=== PATIENT | male | born 1975 | race Caucasian/White ===

== ENCOUNTER 2020-03-09 12:53 | Emergency (ER) | payer OTHER, SELFPAY ==
--- NOTE | 2020-03-09 | ECG_ITS ---
Test Reason : SYNCOPEE Blood Pressure : / mmHG Vent. Rate : 058 BPM Atrial Rate : 058 BPM P-R Int : 182 ms QRS Dur : 090 ms QT Int : 406 ms P-R-T Axes : 046 007 040 degrees QTc Int : 398 ms Sinus bradycardia RSR' or QR pattern in V1 suggests right ventricular conduction delay Low voltage QRS Abnormal ECG When compared with ECG of 21-SEP-2017 08:58, Vent. rate has decreased BY 29 BPM Referred By: Generic ED Physician Electronically Signed By:HAZEL ORR MD
[2020-03-09 14:03] VITALS: BP 129/84; PULSE 63
--- NOTE | 2020-03-09 14:03 | XR_ITS ---
EXAMINATION: XR CHEST CLINICAL INFORMATION: Syncope COMPARISON: September 21, 2017 TECHNIQUE: 2 views of the chest were obtained. FINDINGS: No significant abnormality is noted involving the heart, lungs, mediastinum, bony thorax or soft tissues. There is some mild elevation of the left hemidiaphragm related to distention of bowel. XR/XR chest 2V IMPRESSION: No acute disease.
--- NOTE | 2020-03-09 14:03 | CT_ITS ---
EXAMINATION: CT HEAD WITHOUT CONTRAST CLINICAL INFORMATION: Syncope COMPARISON: None TECHNIQUE: Contiguous axial imaging was performed from the skull base to vertex without intravenous administration of contrast. This CT examination was performed using dose optimization techniques as appropriate, variously including the following: *Automated exposure control *Adjustment of mA and/or kV according to patient size (this includes techniques or standardized protocols for targeted exams where dose is matched to indication/reason for exam; i.e. extremities or head) *Use of iterative reconstruction technique DLP: 763 mGy-cm FINDINGS: There is no evidence of acute intracranial hemorrhage or territorial infarction. No abnormal mass effect or midline shift is seen. Hay to white matter differentiation is well preserved. No extra-axial fluid collections are identified. The ventricles are normal in size. There is no abnormal attenuation within the brain parenchyma. The osseous structures and soft tissues are normal. The mastoid air cells and visualized portions of the paranasal sinuses are well aerated. CT/CT head/brain wo con IMPRESSION: No acute intracranial pathology.
--- NOTE | 2020-03-09 14:05 | ED.SYNCOPE ---
HPI - Syncope General Chief Complaint: Syncope Stated Complaint: FAINTED Time Seen by Provider: 03/09/20 13:42 Source: patient Mode of arrival: ambulatory Limitations: no limitations History of Present Illness HPI narrative: 44-year-old male with no past medical history here with syncopal episode. Patient tells me this morning when he stood up he had an episode of feeling lightheaded like he might pass out. He sat down and the symptoms improved. He had a 2nd episode where he sat up felt lightheaded and then he tells me he woke up on the ground. He denies incontinence. It was unwitnessed. Thinks it may have been several seconds. Unsure if he hit his head when he fell. He tells me he has been drinking water but has not had anything to eat since yesterday morning. No vomiting or diarrhea or abdominal pain or chest pain or shortness of breath cough or headache. He has no associated symptoms with the lightheadedness. He has never had this happen before. MD complaint: loss of consciousness and felt faint Onset (ago): minute(s) -: second(s) Prodromal symptoms: lightheaded Witnessed: No Context: standing up Injuries sustained associated with event: none Current symptoms: none Treatments prior to arrival: none Related Data Allergies Allergy/AdvReac Type Severity Reaction Status Date / Time No Known Allergies Allergy Unverified 01/16/20 15:04 [No Known Allergies*] Review of Systems Review of Systems: Yes all other systems are reviewed and are negative Constitutional: Constitutional: Reports no additional constitutional complaints, Denies body ache(s), Denies chills, Denies fever(s), Denies headache(s) and Denies weakness Eyes: Eyes: Reports no additional eye complaints and Denies change in vision ENT: Reports system reviewed and no additional complaints, except as documented, Reports dizziness ( Lightheadedness), Denies headache(s), Denies nasal congestion, Denies nasal discharge and Denies neck pain Cardiovascular: Cardiovascular: Reports no additional cardiovascular complaints, Denies chest pain, Denies leg edema and Denies dyspnea Respiratory: Respiratory: Reports no additional respiratory complaints, Denies cough and Denies dyspnea Gastrointestinal: Gastrointestinal: Reports no additional gastrointestinal complaints, Denies abdominal pain, Denies diarrhea, Denies nausea and Denies vomiting Genitourinary: Genitourinary: Denies urinary incontinence Musculoskeletal: Musculoskeletal: Reports no additional musculoskeletal complaints, Denies back pain, Denies arthralgias, Denies joint swelling, Denies neck pain, Denies numbness and Denies tingling Integumentary/Breasts: Skin/Breast: Reports system reviewed and no additional complaints, except as docu and Denies rash Neurologic: Reports system reviewed and no additional complaints, except as documented, Denies Abnormal speech present, Reports dizziness ( Lightheadedness), Denies headache(s), Denies numbness, Denies tingling and Denies weakness [facility] Past Medical History Attestation statement: The following information was validated with the patient. Source: obtained from family and nursing notes reviewed Social History Social History Advance Directives: No Advance Directives Information Provided: No Physical Exam Vital Signs: Vital Signs: Last Vital Signs Temp 98.1 F 03/09/20 15:12 Pulse 64 03/09/20 16:38 Resp 16 03/09/20 15:12 BP 85/51 L 03/09/20 16:38 Pulse Ox 99 03/09/20 15:12 Body Mass Index 34.9 Const: General: cooperative, healthy appearing, comfortable and no acute distress Orientation/consciousness: patient oriented x3 Limitations: no limitations HENMT: Head: Yes normal to inspection Ears: hearing grossly normal bilaterally General nose exam: Normal external nose present Face and sinus: Yes normal facial exam Mouth: Normal oral and palatal mucosa present Throat: Yes posterior oropharynx normal Eyes: General: appearance normal, both eyes and all related structures Pupils: Equal, round and reactive pupils present Neck: Neck: Yes normal visual inspection Chest: Chest palpation & inspection: normal inspection of the chest Resp: Effort & Inspection: normal respiratory effort Auscultation: clear to auscultation bilaterally Cardio: Rate: regular rate Rhythm: regular rhythm Peripheral pulses: Peripheral pulses 2+ throughout GI: Inspection: Yes normal to inspection Palpation (GI): Soft to palpation and nontender Auscultation: normal bowel sounds Back/Spine/Pelvis: Thoracic/Lumbar Spine: thoracic and lumbar spine normal to inspection Skin: General skin exam: no rashes or lesions noted Neuro: General: patient oriented x3, no focal motor deficits and normal sensation to monofilament Cranial nerves: Yes CN's II-XII intact bilaterally, Yes Equal, round and reactive pupils present, Yes Bilaterally intact EOM present, Yes Nystagmus not present, Yes Normal facial strength present and Yes Midline tongue present Cognition (Neuro): normal cognition Speech: No Abnormal speech present Gait exam (Neuro): Normal gait present Motor exam (neuro): 5/5 motor strength present throughout Coordination: [id number] test normal, [id number] test normal and tandem gait normal Extrem: General: Yes normal to inspection Course Course Course Narrative: pt here with a lightheaded episode, then syncopal episode after standing. Both episodes occurred with standing. Normal neuro exam. Stable vital signs. Will need labs, EKG, UA, orthostatics, CXR and CT head. 1645- Labs unremarkable. Imaging negative. Orthostatics positive. Patient to be given 2 L normal saline will recheck. MDM - Syncope MDM Narrative Medical decision making narrative: Considered syncope, orthostatic hypotension, electrolyte abnormality, anemia, ICH, ACS, arthtymia Less likely electrolyte abnormality or anemia with normal labs. Less likely ICH with normal CT head. Less likely ACS wit unremarkable EKG and negative troponin. Less likely tachy arrhythmia with no EKG changes or tachyarrhythmias noted on registered nurse cardiac during ED stay. Likely orthostatic hypotension with significantly positive orthostatics. 1700-sign out to Yung BURROUGHS pending above. Medical Records Attestation: I reviewed the patient's medical records. Lab Data Attestation: I reviewed the patient's lab results. Result diagrams: 03/09/20 15:22 03/09/20 15:23 Labs: Lab Results 03/09/20 03/09/20 03/09/20 Range/Units 15:22 15:22 15:23 WBC 8.5 (4.8-10.8) X10*3/uL RBC 5.30 (4.60-5.80) X10*6/uL Hgb 16.0 (14.0-18.0) g/dl Hct 47.4 (42-52) % MCV 89.4 (80-98) fL MCH 30.2 (27.0-33.0) pg MCHC 33.8 (31.0-36.0) g/dl RDW 12.6 (11.0-16.0) % Plt Count 278 (160-400) X10*3/uL MPV 9.1 L (9.4-12.4) fL Immature Gran % (Auto) 0.2 (0.0-0.4) % Neut % (Auto) 69.7 (45-73) % Lymph % (Auto) 21.6 (20-40) % [place] % (Auto) 7.2 (2-11) % Eos % (Auto) 0.6 (0-4) % Baso % (Auto) 0.7 (0-2) % Lymph # (Auto) 1.8 (1.2-4.9) X10*3/uL [place] # (Auto) 0.6 (0.1-1.2) X10*3/uL Eos # (Auto) 0.1 (0.0-0.4) X10*3/uL Baso # (Auto) 0.1 (0.0-0.2) X10*3/uL Abs Immat Gran (auto) 0.02 (0.00-0.03) X10*3/uL Absolute Neuts (auto) 5.9 (2.0-8.3) X10*3/uL Absolute Nucleated RBC 0.000 (0.0-0.012) X10*3/uL Nucleated RBC % (auto) 0.0 (0.0-0.2) /100WBC PT 13.1 H (10.8-13.0) SEC INR 1.1 (0.9-1.1) Sodium 139 (135-145) mmol/L Potassium 4.1 (3.3-5.1) mmol/l Chloride 107 (96-108) mmol/L Carbon Dioxide 24 (22-29) mmol/L Anion Gap 12 (12-20) BUN 12 (9-16) mg/dL Creatinine 1.15 (0.5-1.4) mg/dL Estim Creat Clear Calc 112.4 Estimated GFR > 60 Random Glucose 109 (60-115) mg/dL Calcium 8.9 (8.4-10.2) mg/dL Magnesium 2.2 (1.6-2.6) mg/dL Total Bilirubin 0.7 (0.0-1.0) mg/dL Direct Bilirubin 0.3 (0.0-0.5) mg/dL AST 12 (5-37) U/L ALT 14 (0-40) U/L Alkaline Phosphatase 70 (39-117) U/L Troponin I High Sens (<3.5-35.0) ng/L Total Protein 7.3 (6.5-8.0) g/dL Albumin 4.3 (3.5-5.0) g/dL 03/09/20 Range/Units 15:23 WBC (4.8-10.8) X10*3/uL RBC (4.60-5.80) X10*6/uL Hgb (14.0-18.0) g/dl Hct (42-52) % MCV (80-98) fL MCH (27.0-33.0) pg MCHC (31.0-36.0) g/dl RDW (11.0-16.0) % Plt Count (160-400) X10*3/uL MPV (9.4-12.4) fL Immature Gran % (Auto) (0.0-0.4) % Neut % (Auto) (45-73) % Lymph % (Auto) (20-40) % [place] % (Auto) (2-11) % Eos % (Auto) (0-4) % Baso % (Auto) (0-2) % Lymph # (Auto) (1.2-4.9) X10*3/uL [place] # (Auto) (0.1-1.2) X10*3/uL Eos # (Auto) (0.0-0.4) X10*3/uL Baso # (Auto) (0.0-0.2) X10*3/uL Abs Immat Gran (auto) (0.00-0.03) X10*3/uL Absolute Neuts (auto) (2.0-8.3) X10*3/uL Absolute Nucleated RBC (0.0-0.012) X10*3/uL Nucleated RBC % (auto) (0.0-0.2) /100WBC PT (10.8-13.0) SEC INR (0.9-1.1) Sodium (135-145) mmol/L Potassium (3.3-5.1) mmol/l Chloride (96-108) mmol/L Carbon Dioxide (22-29) mmol/L Anion Gap (12-20) BUN (9-16) mg/dL Creatinine (0.5-1.4) mg/dL Estim Creat Clear Calc Estimated GFR Random Glucose (60-115) mg/dL Calcium (8.4-10.2) mg/dL Magnesium (1.6-2.6) mg/dL Total Bilirubin (0.0-1.0) mg/dL Direct Bilirubin (0.0-0.5) mg/dL AST (5-37) U/L ALT (0-40) U/L Alkaline Phosphatase (39-117) U/L Troponin I High Sens < 3.5 (<3.5-35.0) ng/L Total Protein (6.5-8.0) g/dL Albumin (3.5-5.0) g/dL Imaging Data Chest x-ray: Attestation: I personally reviewed and interpreted this imaging study as follows: Radiologist's impression: EXAMINATION: XR CHEST CLINICAL INFORMATION: Syncope COMPARISON: September 21, 2017 TECHNIQUE: 2 views of the chest were obtained. FINDINGS: No significant abnormality is noted involving the heart, lungs, mediastinum, bony thorax or soft tissues. There is some mild elevation of the left hemidiaphragm related to distention of bowel. XR/XR chest 2V IMPRESSION: No acute disease. CT scan - head: Attestation: I personally reviewed and interpreted this imaging study as follows: Radiologist's impression: EXAMINATION: CT HEAD WITHOUT CONTRAST CLINICAL INFORMATION: Syncope COMPARISON: None TECHNIQUE: Contiguous axial imaging was performed from the skull base to vertex without intravenous administration of contrast. This CT examination was performed using dose optimization techniques as appropriate, variously including the following: *Automated exposure control *Adjustment of mA and/or kV according to patient size (this includes techniques or standardized protocols for targeted exams where dose is matched to indication/reason for exam; i.e. extremities or head) *Use of iterative reconstruction technique DLP: 763 mGy-cm FINDINGS: There is no evidence of acute intracranial hemorrhage or territorial infarction. No abnormal mass effect or midline shift is seen. Hay to white matter differentiation is well preserved. No extra-axial fluid collections are identified. The ventricles are normal in size. There is no abnormal attenuation within the brain parenchyma. The osseous structures and soft tissues are normal. The mastoid air cells and visualized portions of the paranasal sinuses are well aerated. CT/CT head/brain wo con IMPRESSION: No acute intracranial pathology. ECG Data Attestation: I personally reviewed and interpreted this ECG as follows: ECG interpretation date: 03/09/20 ECG interpretation time: 14:56 Interpretation: Sinus bradycardia with a rate of 58, normal [place], normal QRS, normal QT. Normal ST segments Discharge Plan Discharge Clinical Impression: Syncope due to orthostatic hypotension Patient Disposition: Home, Self-Care Instructions: Syncope (ED), Hypotension (ED) Additional Instructions: change positions slowly. Eat frequent small meals drink plenty of fluids Referrals: Randy Howard MD [Primary Care Provider] - 2 days Stand Alone Forms: Work/School Release
[2020-03-09 15:12] VITALS: BP 120/82; PULSE 62; RESP 16; TEMP 36.7; O2SAT 99; BMI 34.9
[2020-03-09 15:29] LABS: Basophils Absolute Auto 0.1 X10*3/uL (0.0-0.2); Basophils Percent Auto 0.7 % (0-2); Eosinophils Absolute Auto 0.1 X10*3/uL (0.0-0.4); Eosinophils Percent Auto 0.6 % (0-4); Hematocrit 47.4 % (42-52); Imm Gran Abs Auto 0.02 X10*3/uL (0.00-0.03); Imm Gran Pct Auto 0.2 % (0.0-0.4); Lymphocytes Absolute Auto 1.8 X10*3/uL (1.2-4.9); Lymphocytes Percent Auto 21.6 % (20-40); MANUAL DIFF FLAG NO; Mean Corpuscular HGB Conc 33.8 g/dl (31.0-36.0); Mean Corpuscular Hemoglobin 30.2 pg (27.0-33.0); Mean Corpuscular Volume 89.4 fL (80-98); Mean Platelet Volume 9.1 fL (9.4-12.4); Monocytes Absolute Auto 0.6 X10*3/uL (0.1-1.2); Monocytes Percent Auto 7.2 % (2-11); Neutrophils Absolute Auto 5.9 X10*3/uL (2.0-8.3); Neutrophils Percent Auto 69.7 % (45-73); Platelet Count 278 X10*3/uL (160-400); Red Cell Distribution Width 12.6 % (11.0-16.0); White Blood Count 8.5 X10*3/uL (4.8-10.8)
[2020-03-09 15:36] LABS: INTERNATIONAL NORM RATIO 1.1 (0.9-1.1); Prothrombin Time 13.1 SEC (10.8-13.0)
[2020-03-09 15:52] LABS: Alanine Aminotransferase 14 U/L (0-40); Albumin Level 4.3 g/dL (3.5-5.0); Alkaline Phosphatase 70 U/L (39-117); Anion Gap 12 (12-20); Aspartate Amino Transferase 12 U/L (5-37); Bilirubin Direct 0.3 mg/dL (0.0-0.5); Bilirubin Total 0.7 mg/dL (0.0-1.0); Blood Urea Nitrogen 12 mg/dL (9-16); Calcium 8.9 mg/dL (8.4-10.2); Carbon Dioxide 24 mmol/L (22-29); Chloride 107 mmol/L (96-108); Creatinine Clr Calc Pharmacy 112.4; Estimated Glomerular Filt Rate > 60; Glucose Random 109 mg/dL (60-115); Magnesium 2.2 mg/dL (1.6-2.6); Potassium 4.1 mmol/l (3.3-5.1); Sodium 139 mmol/L (135-145); Total Protein 7.3 g/dL (6.5-8.0)
[2020-03-09 15:55] LABS: Troponin-I High Sensitivity < 3.5 ng/L (<3.5-35.0)
[2020-03-09 16:35] VITALS: BP 91/71; PULSE 77
[2020-03-09 16:38] VITALS: BP 85/51; PULSE 64
[2020-03-09] MEDS: 0.9 % Sodium Chloride 1,000 ML 999 ML IV ×2 (16:54)
[2020-03-09 18:40] VITALS: BP 157/97; PULSE 82
--- NOTE | 2020-03-09 18:40 | PC.NURSE ---
pt still appears to be orthostatic. provider at bedside to discusss plan of care w pt. pt deciding to leave [facility]a. provider aware, working on paperwork.
[2020-03-09 18:41] VITALS: BP 103/66; BP 122/67; PULSE 78; PULSE 80
== END 2020-03-09 19:13 | disposition left against medical advice (07) ==
PROVIDERS: Nurse Practitioner Family; Emergency Provider Emergency Medicine; PCP Internal Medicine
DX: I95.1 Orthostatic hypotension (principal); Z79.899 Other long term (current) drug therapy
CPT/HCPCS: 36415; 70450; 71046; 80048; 80076; 83735; 84484; 85025; 85610; 93005; 96360; 99283; 99284

== ENCOUNTER → 2020-07-07 09:57 | Outpatient (BNVA) | payer OTHER, SELFPAY | PROVIDERS: PCP Internal Medicine; Visit Provider Surgery Vascular Surgery | DX: I83.11 Varicose veins of right lower extremity with inflammation (principal); L03.116 Cellulitis of left lower limb; L03.115 Cellulitis of right lower limb | CPT/HCPCS: 99212 ==

== ENCOUNTER 2020-07-14 12:53 | Outpatient (REF) | payer OTHER, SELFPAY ==
--- NOTE | ~2020-07-14 | US_ITS ---
EXAMINATION: RIGHT and LEFT LOWER EXTREMITY VENOUS ULTRASOUND (Reflux Exam) CLINICAL INDICATION: leg pain and varicose veins. COMPARISON: Previous exam June 2018 TECHNIQUE: Color flow triplex imaging and compression Doppler was performed to evaluate both the deep and the superficial systems bilaterally. To evaluate the superficial system, the examination was performed in the upright position. Color-flow Doppler ultrasound and compression ultrasound were utilized. In addition, maneuvers were utilized to demonstrate reflux. FINDINGS: 1. DEEP VENOUS ULTRASOUND OF THE RIGHT LOWER EXTREMITY: Respiratory variation, normal compression and augmented flow are noted in the right common femoral vein as well as the right popliteal vein and there is no evidence of deep venous thrombosis at these locations. There is no evidence of reflux in the deep system in either the common femoral vein or the popliteal vein. There is no evidence of a Kim's cyst. 2. SUPERFICIAL ULTRASOUND WITH DOPPLER OF RIGHT LOWER EXTREMITY: The right great saphenous vein at the saphenofemoral junction measures 1 mm, at the mid thigh 6 mm, [id number] 5 mm, [id number] 5 mm, at mid calf 5 mm and at the ankle measures 3 mm. There is no reflux demonstrated in the right great saphenous vein. The right small saphenous vein measures 3-4 mm and shows no reflux. There are perforators in the mid calf and ankle to measure 2 and 3 mm and do not demonstrate reflux. There are varicosities at the knee, below the knee, the mid calf and ankle, maximum measuring 6 mm below the knee. These do not demonstrate reflux. 3. DEEP VENOUS ULTRASOUND OF THE LEFT LOWER EXTREMITY: Respiratory variation, normal compression and augmented flow are noted in the left common femoral vein as well as the left popliteal vein and there is no evidence of deep venous thrombosis at these locations. There is deep venous reflux in the mid femoral vein measuring 1.2 seconds in the popliteal vein measuring 1.7 seconds.. There is no evidence of a Kim's cyst. 4. SUPERFICIAL ULTRASOUND WITH DOPPLER OF LEFT LOWER EXTREMITY: Left great saphenous vein at the saphenofemoral junction measures 1.5 mm and 0.6 cm in the proximal thigh. The left greater saphenous vein in the mid thigh, [id number] and at the knee is occluded. The greater saphenous vein measures 4 mm [id number] , at mid calf 4 mm and at the ankle 3 mm. There is 1.9 seconds reflux at the saphenofemoral junction and 1.8 seconds reflux below the knee. There is an accessory lateral greater saphenous vein that measures 7 mm and does not demonstrate reflux. The left small saphenous vein measures 3-4 mm and shows no reflux. There are varicosities in the upper thigh, below the knee, at the mid calf and ankle, maximum measuring 5 mm below the knee. No prior varicosity reflux is seen. US/US venous duplex LE BI IMPRESSION: 1. No evidence of thrombus in the common femoral veins or popliteal veins bilaterally. Reflux in the left mid femoral and popliteal veins. No right deep venous reflux seen. 2. The right greater saphenous vein is patent throughout its length and demonstrates no reflux. The left greater saphenous vein is visualized at the saphenofemoral junction and in the proximal thigh. This is dilated at the saphenofemoral junction measuring 1.5 cm and demonstrates 1.9 seconds reflux. The left greater saphenous vein is occluded from the mid thigh to the knee. The left greater saphenous vein is visualized below the knee to the ankle and demonstrates 1.8 seconds reflux below the knee.
== END 2020-07-14 12:54 | disposition home or self-care (01) ==
LOC: HO.US 12:53
PROVIDERS: Visit Provider Nurse Practitioner Family
DX: I83.813 Varicose veins of bilateral lower extremities with pain (principal); Z98.890 Other specified postprocedural states
CPT/HCPCS: 93970

== ENCOUNTER → 2020-07-23 15:40 | Outpatient (BNVA) | payer OTHER, SELFPAY | PROVIDERS: PCP Internal Medicine; Visit Provider Surgery Vascular Surgery | DX: I83.11 Varicose veins of right lower extremity with inflammation (principal) | CPT/HCPCS: 99212 ==

== ENCOUNTER 2023-02-07 10:36 | Outpatient (AMB) | payer SELFPAY ==
--- NOTE | 2023-02-07 10:36 | MHC.PC.OV ---
Vital Signs 02/07/23 10:39 Height 6 ft Weight 218 lb 8 oz BMI 29.6 BP 128/82 Blood Pressure Location Lt brachial Position Sitting Pulse 79 Pulse Source Pulse Oximeter Pulse Oximetry (%) 97 Oxygen Delivery Method Room Air Intake Visit Reasons: Physical exam Intake Note: Patient is here today for a physical. Need forms filled out. Dot Etcher Required: No Hand Mold Maker: Not Required per policy Accompanied by: Self / Same As Patient Allergies No Known Allergies [No Known Allergies*] Allergy (Verified 02/07/23 10:38) Tobacco use date assessed: 02/07/23 Dental Screening Dental Screen Date: 02/07/23 Did you have a dental visit in the last 12 months?: No Did you have a dental problem in the last 6 months where you did not have access to dental care?: No Was dental information given to patient?: No HPI HPI Comments History of Present Illness Details 47-year-old male past medical history significant for PVD, lumbar degenerative disc disease and iron deficiency anemia, history of opiate abuse. Patient last seen in 2020 . Patient presents today for physical exam. Patient requesting [facility] paperwork be completed for continuous medical leave as patient Section 35 for detox for history of snorting heroin. Patient reports has been on a work since 12/11/2022 states he initially went to the [facility] for detox however they discharged him for insurance reasons, I have no proof of this admission. Last use day prior to admission. Patient was admitted 01/13/23- 02/03/23 [facility] in [facility] for opiate abuse, patient brought paperwork with him copies made in to be scanned to chart. Patient currently following with Methadone clinic [facility] on methadone liquid on 40 mg daily. A [place] paperwork completed office today for continous levae from 01/13/23-02/03/23 patient reports able to complete all job functions. Completed paperwork placed in scan bucket to be scanned to patient's chart. Denies any acute concerns. Denies chest pain, palpitations, shortness of breath syncope. Eye exam: 2 years ago Colonoscopy: never had, declined at this time. Immunizations:TDAP 2018, declined Flu shot. [facility] Medical History Tobacco abuse Peripheral vascular disease Iron deficiency anemia Venous stasis dermatitis of both lower extremities Obesity (BMI 30-39.9) Lumbar degenerative disc disease Bilateral lower leg cellulitis Surgical History Back pain with history of spinal surgery History of nasal surgery H/O wrist surgery Family History Father No problems noted. Mother No problems noted. 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 1. Little interest or pleasure in doing things: not at all 2. Feeling down, depressed, or hopeless: not at all 3. Trouble falling or staying asleep, or sleeping too much: not at all 4. Feeling tired or having little energy: not at all 5. Poor appetite or overeating: not at all 6. Feeling bad about yourself - or that you are a failure or have let yourself or your family down: not at all 7. Trouble concentrating on things, such as reading the newspaper or watching television: not at all 8. Moving or speaking so slowly that other people could have noticed. Or the opposite - being so fidgety or restless that you have been moving around a lot more than usual: not at all 9. Thoughts that you would be better off or of hurting yourself in some way: not at all Total score: 0 Depression Screening Interpretation: Negative Depression Screening Done: Yes 44364 - PHQ-9 Billing: Yes Source: Developed by Drs. Fredy Merino, Lindsey B.W. Woody Gonsalez and colleagues, with an educational pat from [employer]. Thrive Questionnaire Date Thrive assessed: 02/07/23 I am a: Patient What is your living situation today?: I have a steady place to live Within the past 12 months, did the food you bought not last and you didn't have the money to get more?: Never true Within the past 12 months, did you worry whether your food would run out before you got money to buy more?: Never true Do you have trouble paying for medicines?: No Do you have trouble getting transportation to medical appointments?: No Do you have trouble paying your heating and electricity bill?: No Do you have trouble taking care of your child, family member or friend?: No Do you have trouble with day-to-day activities such as bathing, preparing meals, shopping, managing finances, etc.?: No Are you currently unemployed and looking for a job?: No Are you interested in more education?: No Currently or been in a relationship where the following occur: no concerns reported AUDIT C Alcohol Use Questionnaire (AUDIT-C) 1. How often do you have a drink containing alcohol?: Monthly or less Total Score: 1 VANIA-7 AMB Questionnaire VANIA-7 Date VANIA - 7 assessed: 02/07/23 Feeling nervous, anxious, or on edge: 0 = Not at all Not being able to stop or control worryin = Not at all Worrying too much about different things: 0 = Not at all Trouble relaxin = Not at all Being so restless that it is hard to sit still: 0 = Not at all Becoming easily annoyed or irritable: 0 = Not at all Feeling afraid as if something awful might happen: 0 = Not at all Total VANIA-7 score (0-4 normal; 5-9 mild; 10-14 moderate; 15-21 severe): 0 Source: Developed by Drs. Fredy Merino, Woody Uribe and colleagues, with an educational pat from [employer]. VANIA-7 Assessment Billing VANIA-7 Assessment Tool: VANIA-7 Assessment 52059 Review of Systems Const Denies chills, Denies fatigue, Denies fever(s) and Denies poor appetite Eyes Denies no additional complaints ENT Reports Normal hearing present Card Denies chest pain, Denies syncope, Denies rapid heart rate and Denies dyspnea Resp Denies cough and Denies dyspnea GI Denies change in stool character, Denies constipation, Denies diarrhea, Denies nausea and Denies vomiting Denies dysuria, Denies urinary frequency and Denies urinary urgency Neuro Reports Normal hearing present, Denies confusion and Denies syncope Psych Denies confusion Endo Denies fatigue Physical exam (Primary Care) Vital Signs: Last Vital Signs Pulse 79 02/07/23 10:39 BP 128/82 02/07/23 10:39 Pulse Ox 97 02/07/23 10:39 Oxygen Delivery Method Room Air 02/07/23 10:39 BMI result Body Mass Index 29.6 Tobacco/Smoking Status: Tobacco use Status Tobacco use date assessed 02/07/23 02/07/23 10:39 Patient Tobacco Use Status Current everyday Tobacco 02/07/23 10:43 Tobacco use type Cigarette 02/07/23 10:43 e-Cigarette/Vaping Use Never Used 02/07/23 10:43 PHQ-9: PHQ-9 Score PHQ-9: Total score 0 02/07/23 10:48 Depression Screening Interpretation: Negative Thrive Assessment: Date of Thrive Assessment Date Thrive assessed 02/07/23 02/07/23 10:39 Currently or been in a relationship where the following occur: no concerns reported Const General: No confusion Orientation/consciousness: No confusion HENMT Head: Yes normocephalic and Yes atraumatic Ears: external ears normal and TM's normal bilaterally General nose exam: Normal external nose present and Normal nasal mucous membranes and turbinates present Face and sinus: Yes normal facial exam and Yes sinuses nontender Mouth: moist mucous membranes Throat: Yes tonsils normal Eyes Conjunctivae: conjunctivae normal Sclerae: sclerae normal Pupils: Equal, round and reactive pupils present and Pupils normal by confrontation EOM: EOMs intact bilaterally Direct Ophthalmoscopy: normal light reflex Neck Neck: Yes no lymphadenopathy and Yes supple Thyroid: Thyroid normal Chest Chest palpation & inspection: normal inspection of the chest Resp Effort & Inspection: normal respiratory effort Auscultation: clear to auscultation bilaterally, no crackles, no rhonchi and no wheezes Cardio Rate: regular rate Rhythm: regular rhythm Peripheral pulses: radial pulses present and dorsalis pedis present GI Inspection: Yes normal to inspection Palpation (GI): Soft to palpation, nontender and No hepatosplenomegaly present Auscultation: normoactive bowel sounds Skin General skin exam: no rashes or lesions noted Neuro General: No confusion Cranial nerves: Yes Equal, round and reactive pupils present and Yes Normal hearing present Cognition (Neuro): normal cognition Gait exam (Neuro): Normal gait present Motor exam (neuro): 5/5 motor strength present throughout Deep tendon reflexes (DTR's): Right brachioradialis reflex intensity grade: 2+, Left brachioradialis reflex intensity grade: 2+, Right patellar reflex intensity grade: 2+ and Left patellar reflex intensity grade: 2+ Extrem General: No edema Assessment and Plan Assessment & Plan (1) Physical exam, annual: Code(s): Z00.00 - Encounter for general adult medical examination without abnormal findings Plan Follow-up in 1 year sooner needed. Orders: Orders Comprehensive Otto. Panel Fast Today Z13.1 - Encounter for screening for diabetes mellitus Complete Blood Count no Diff Today Z13.0 - Encounter for screening for diseases of the blood and blood-forming organs and certain disorders involving the immune mechanism Lipid Panel Today Z13.220 - Encounter for screening for lipoid disorders TSH reflex Free T4 Today Z13.29 - Encounter for screening for other suspected endocrine disorder Coding Level of Care Code Est Pt Prev Care 40-64y(13914) Diagnoses Physical exam, annual Z00.00 Additional Codes VANIA-7 Assessment Billing - VANIA-7 Assessment Tool: VANIA-7 Assessment 29814 ([id number])
[2023-02-07 10:39] VITALS: BP 128/82; PULSE 79; O2SAT 97; BMI 29.6
== END 2023-02-07 11:16 | disposition home or self-care (01) ==
PROVIDERS: PCP Internal Medicine; Visit Provider Nurse Practitioner Family
DX: Z00.00 Encounter for general adult medical examination without abnormal findings (principal)
CPT/HCPCS: 99396

== ENCOUNTER 2023-08-22 12:21 | Outpatient (AMB) | payer BC, SELFPAY ==
[2023-08-22 12:30] VITALS: BP 152/98; PULSE 85; O2SAT 97; BMI 36.2
--- NOTE | 2023-08-22 12:30 | MHC.PC.OV ---
Vital Signs 08/22/23 12:30 Height 6 ft Weight 267 lb BMI 36.2 BP 152/98 H Blood Pressure Location Lt brachial Position Sitting Pulse 85 Pulse Source Pulse Oximeter Pulse Oximetry (%) 97 Oxygen Delivery Method Room Air Intake Visit Reasons: Form Intake Note: Patient is looking for a letter to return to work. Allergies No Known Allergies [No Known Allergies*] Allergy (Verified 08/22/23 12:31) Tobacco use date assessed: 08/22/23 Dental Screening Dental Screen Date: 08/22/23 Did you have a dental visit in the last 12 months?: No Did you have a dental problem in the last 6 months where you did not have access to dental care?: No Was dental information given to patient?: No HPI Form HPI Details 47-year-old obese male smoker with peripheral vascular disease, polysubstance abuse coming in for follow-up. Last seen in January 2023. Patient was in [facility] in [place]- march to last week 07/2023. PAtient is presently on Methadone. getting from [facility]. presently doing good [facility] Medical History Tobacco abuse Peripheral vascular disease Iron deficiency anemia Venous stasis dermatitis of both lower extremities Obesity (BMI 30-39.9) Lumbar degenerative disc disease Bilateral lower leg cellulitis Surgical History Back pain with history of spinal surgery History of nasal surgery H/O wrist surgery Family History Father No problems noted. Mother No problems noted. 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 1. Little interest or pleasure in doing things: not at all 2. Feeling down, depressed, or hopeless: not at all 3. Trouble falling or staying asleep, or sleeping too much: not at all 4. Feeling tired or having little energy: not at all 5. Poor appetite or overeating: not at all 6. Feeling bad about yourself - or that you are a failure or have let yourself or your family down: not at all 7. Trouble concentrating on things, such as reading the newspaper or watching television: not at all 8. Moving or speaking so slowly that other people could have noticed. Or the opposite - being so fidgety or restless that you have been moving around a lot more than usual: not at all 9. Thoughts that you would be better off or of hurting yourself in some way: not at all Total score: 0 Depression Screening Interpretation: Negative Depression Screening Done: Yes 32373 - PHQ-9 Billing: Yes Source: Developed by Drs. Fredy Merino, Lindsey Gonsalez, Woody Hernandes and colleagues, with an educational pat from [employer]. Thrive Questionnaire Date Thrive assessed: 08/22/23 I am a: Patient What is your living situation today?: I have a steady place to live Within the past 12 months, did the food you bought not last and you didn't have the money to get more?: Never true Within the past 12 months, did you worry whether your food would run out before you got money to buy more?: Never true Do you have trouble paying for medicines?: No Do you have trouble getting transportation to medical appointments?: No Do you have trouble paying your heating and electricity bill?: No Do you have trouble taking care of your child, family member or friend?: No Do you have trouble with day-to-day activities such as bathing, preparing meals, shopping, managing finances, etc.?: No Are you currently unemployed and looking for a job?: No Are you interested in more education?: No Currently or been in a relationship where the following occur: no concerns reported THRIVE Score: 0 AUDIT C Alcohol Use Questionnaire (AUDIT-C) 1. How often do you have a drink containing alcohol?: Never 3. How often do you have six or more drinks on one occasion?: Never Total Score: 0 VANIA-7 AMB Questionnaire VANIA-7 Date VANIA - 7 assessed: 08/22/23 Feeling nervous, anxious, or on edge: 0 = Not at all Not being able to stop or control worryin = Not at all Worrying too much about different things: 0 = Not at all Trouble relaxin = Not at all Being so restless that it is hard to sit still: 0 = Not at all Becoming easily annoyed or irritable: 0 = Not at all Feeling afraid as if something awful might happen: 0 = Not at all Total VANIA-7 score (0-4 normal; 5-9 mild; 10-14 moderate; 15-21 severe): 0 Source: Developed by Drs. Fredy Merino, Lindsey Gonsalez, Woody Hernandes and colleagues, with an educational pat from [employer]. VANIA-7 Assessment Billing VANIA-7 Assessment Tool: VANIA-7 Assessment 79145 Physical exam (Primary Care) Vital Signs: Last Vital Signs Pulse 85 08/22/23 12:30 BP 152/98 H 08/22/23 12:30 Pulse Ox 97 08/22/23 12:30 Oxygen Delivery Method Room Air 08/22/23 12:30 BMI result Body Mass Index 36.2 Tobacco/Smoking Status: Tobacco use Status Tobacco use date assessed 08/22/23 08/22/23 12:36 Patient Tobacco Use Status Current everyday Tobacco 08/22/23 12:36 Tobacco use type Cigarette 08/22/23 12:36 e-Cigarette/Vaping Use Never Used 08/22/23 12:36 PHQ-9: PHQ-9 Score PHQ-9: Total score 0 08/22/23 12:36 Depression Screening Interpretation: Negative Thrive Assessment: Date of Thrive Assessment Date Thrive assessed 08/22/23 08/22/23 12:36 Currently or been in a relationship where the following occur: no concerns reported Const General: alert; No acute distress Eyes Conjunctivae: conjunctivae normal Resp Auscultation: clear to auscultation bilaterally Cardio Rate: regular rate Rhythm: regular rhythm GI Inspection: Yes normal to inspection Extrem General: Yes normal to inspection and No edema Assessment and Plan Assessment & Plan (1) Obesity (BMI 30-39.9): Code(s): E66.9 - Obesity, unspecified Plan: Diet and exercise (2) Tobacco abuse: Code(s): Z72.0 - Tobacco use Plan: Patient is advised to strongly stop smoking! (3) Peripheral vascular disease: Code(s): I73.9 - Peripheral vascular disease, unspecified Plan: When sitting down elevate the legs, exercise, and support stockings (4) Polysubstance abuse: Code(s): F19.10 - Other psychoactive substance abuse, uncomplicated Plan: Continue to follow-up with methadone clinic Coding Level of Care Code Est Pt Level 4 (38320) Diagnoses Obesity (BMI 30-39.9) E66.9 Tobacco abuse Z72.0 Peripheral vascular disease I73.9 Polysubstance abuse F19.10 Additional Codes VANIA-7 Assessment Billing - VANIA-7 Assessment Tool: VANIA-7 Assessment 94659 ([id number])
== END 2023-08-22 12:52 | disposition home or self-care (01) ==
LOC: HO.HMGH 12:21
PROVIDERS: PCP Internal Medicine; Visit Provider Internal Medicine
DX: I73.9 Peripheral vascular disease, unspecified (principal); F19.10 Other psychoactive substance abuse, uncomplicated; E66.9 Obesity, unspecified; Z68.36 Body mass index [BMI] 36.0-36.9, adult; Z72.0 Tobacco use
CPT/HCPCS: 99214

== ENCOUNTER 2023-09-09 09:27 | Outpatient (AMB) | payer BC, SELFPAY ==
[2023-09-09 10:04] VITALS: BP 124/80; PULSE 80; TEMP 37.3; O2SAT 92; BMI 34.7
--- NOTE | 2023-09-09 10:04 | AM.OFFWIN_ITS ---
Intake Vital Signs 09/09/23 10:04 Height 6 ft Weight 256 lb BMI 34.7 BP 124/80 Blood Pressure Location Lt brachial Position Sitting Pulse 80 Pulse Source Pulse Oximeter Temp 99.1 F Temp Source Oral Pulse Oximetry (%) 92 Oxygen Delivery Method Room Air Intake Visit Reasons: EST/sinus pressure(lobby masked) Intake Note: Pt is here today c/o sinus pressure and coughing x4days Patient Tobacco Use Status: Current everyday Tobacco user Allergies No Known Allergies [No Known Allergies*] Allergy (Verified 09/09/23 10:46) Medication List - Last Reconciled 09/09/23 by BELKYS Khanna-WILBERT methadone 15 mg PO DAILY HPI HPI Comments History of Present Illness Details Here today with complaints of sinus pressure and cough since Monday. Has used [id number] medications without relief. Current smoker. Awake alert mildly ill-appearing but no acute distress Sclera and conjunctiva clear bilat TM intact and erythematous bilat MMM, pharynx positive postnasal drip RRR LS inspiratory expiratory wheezes throughout, hacking cough noted during exam without respiratory distress PFSH Medical History Tobacco abuse Peripheral vascular disease Iron deficiency anemia Venous stasis dermatitis of both lower extremities Obesity (BMI 30-39.9) Lumbar degenerative disc disease Bilateral lower leg cellulitis Surgical History Back pain with history of spinal surgery History of nasal surgery H/O wrist surgery Family History Father No problems noted. Mother No problems noted. 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 Plan . Medications: New prednisone 20 mg PO DAILY 5 days 5 tabs 0RF benzonatate 100 mg PO TID 10 days PRN 30 caps 1RF cough azithromycin For 250 mg dose pack: take 500 mg today (day 1), then 250 mg for 4 days (days 2-5) PO 5 days 6 tabs 0RF Coding Level of Care Code Est Pt Level 3 (60531) Diagnoses Bronchitis J40
== END 2023-09-09 10:57 | disposition home or self-care (01) ==
PROVIDERS: PCP Internal Medicine; Visit Provider Nurse Practitioner Family
DX: J40 Bronchitis, not specified as acute or chronic (principal)
CPT/HCPCS: 99051; 99213